=== PATIENT | female | born 1970 | race Caucasian/White ===

== ENCOUNTER 2020-10-16 16:06 | Emergency (ER) | payer MEDICARE ==
[~2020-10-16 16:06] MED LIST: ABILIFY5 MG PO; ALPRAZOLAM ER0.5 MG PO; BIRTH CONTROL PO; CELEBREX100 MG PO; ELAVIL 50 MG TA50 MG PO; FOLIC ACID1 MG PO; KLONOPIN1 MG PO; LEVAQUIN750 MG PO; LEXAPRO20 MG PO; NEURONTIN 400400 MG PO; NORCO 5-325 TA1 EACH PO; OXYCODONE HCL5 M1 PO; TOPAMAX25 M1 PO; VISTARIL50 MG PO; VOLTAREN EC 5050 MG PO; WELLBUTRIN SR150 M1 PO; XANAX1 MG PO
[2020-10-16 17:38] LABS: HEMOGLOBIN 14.9 gm/dl (12.3-15.3); RED BLOOD COUNT 5.32 M/UL (4.00-5.10); WHITE BLOOD COUNT 5.9 K/UL (4.5-11.0)
[2020-10-16] MEDS ORDERED: ZOFRAN ODT 4 MG4 MG SL (18:45)
[2020-10-16] MEDS ORDERED: LOMOTIL 2.5-0.1 EACH PO (18:45)
== END 2020-10-16 21:05 | disposition home or self-care (01) ==
LOC: ER1 16:06
PROVIDERS: Physician Assistant Medical
DX: Z23 Encounter for immunization (principal); U07.1 COVID-19; Z90.49 Acquired absence of other specified parts of digestive tract; Z88.1 Allergy status to other antibiotic agents; Z88.8 Allergy status to other drugs, medicaments and biological substances
CPT/HCPCS: 71045; 80053; 83605; 85025; 87040; 99283; J2405; J7030; M0243

== ENCOUNTER 2020-11-04 17:38 | Emergency (ER) | payer MEDICARE ==
[~2020-11-04 17:38] MED LIST changes: +LOMOTIL 2.5-0.1 EACH PO; +ZOFRAN ODT 4 MG4 MG SL
[2020-11-04 20:54] LABS: HEMOGLOBIN 13.1 gm/dl (12.3-15.3); RED BLOOD COUNT 4.45 M/UL (4.00-5.10)
[2020-11-04 21:35] LABS: BUN/CREATININE RATIO 16 (0-10)
[2020-11-04] MEDS ORDERED: TESSALON PERLE100 MG PO (22:53)
[2020-11-04] MEDS ORDERED: DECADRON6 MG PO (22:53)
[2020-11-04] MEDS ORDERED: PROVENTIL HFA6.7 GM INH (22:53)
== END 2020-11-04 23:00 | disposition home or self-care (01) ==
LOC: ER1 17:38
PROVIDERS: Physician Assistant
DX: U07.1 COVID-19 (principal); Z88.8 Allergy status to other drugs, medicaments and biological substances
CPT/HCPCS: 71045; 80053; 82550; 82553; 83874; 84484; 85025; 85379; 85610; 85730; 93005; 94640; 94664; 96374; 99285; J2930

== ENCOUNTER 2020-11-20 12:13 | Emergency (ER) | payer MEDICARE ==
[~2020-11-20 12:13] MED LIST changes: +DECADRON6 MG PO; +PROVENTIL HFA6.7 GM INH; +TESSALON PERLE100 MG PO
[2020-11-20 12:56] LABS: HEMOGLOBIN 13.8 gm/dl (12.3-15.3); RED BLOOD COUNT 4.7 M/UL (4.00-5.10); WHITE BLOOD COUNT 7.4 K/UL (4.5-11.0)
[2020-11-20 13:21] LABS: BUN/CREATININE RATIO 20 (0-10)
[2020-11-20] MEDS ORDERED: NAPROXEN500 MG PO (15:35)
[2020-11-20] MEDS ORDERED: PREDNISONE20 MG PO (15:35)
== END 2020-11-20 15:45 | disposition home or self-care (01) ==
LOC: ER1 12:13
DX: R09.1 Pleurisy (principal); R51.9 Headache, unspecified; U09.9 Post COVID-19 condition, unspecified; Z88.8 Allergy status to other drugs, medicaments and biological substances
CPT/HCPCS: 71045; 80053; 82550; 82553; 83874; 84484; 85025; 93005; 96374; 96375; 99285; J0780; J1885; Q9967

== ENCOUNTER 2020-12-09 13:06 | Emergency (ER) | payer SELFPAY ==
[~2020-12-09 13:06] MED LIST changes: +NAPROXEN500 MG PO; +PREDNISONE20 MG PO
[2020-12-09 14:03] LABS: HEMOGLOBIN 15.2 gm/dl (12.3-15.3); RED BLOOD COUNT 5.13 M/UL (4.00-5.10); WHITE BLOOD COUNT 10.5 K/UL (4.5-11.0)
[2020-12-09 14:22] LABS: BUN/CREATININE RATIO 21 (0-10)
== END 2020-12-09 15:45 | disposition home or self-care (01) ==
LOC: ER1 13:06
PROVIDERS: Preventive Medicine Occupational Medicine
DX: S20.211A Contusion of right front wall of thorax, initial encounter (principal); W19.XXXA Unspecified fall, initial encounter
CPT/HCPCS: 71045; 71250; 80053; 82550; 82553; 83874; 84484; 85025; 93005; 96374; 96375; 99285; C9113; J1885

== ENCOUNTER 2021-02-24 23:53 | Emergency (ER) | payer SELFPAY ==
[2021-02-25 01:27] LABS: HEMOGLOBIN 13.5 gm/dl (12.3-15.3); RED BLOOD COUNT 4.7 M/UL (4.00-5.10); WHITE BLOOD COUNT 7.1 K/UL (4.5-11.0)
[2021-02-25 01:52] LABS: BUN/CREATININE RATIO 16 (0-10)
[2021-02-25] MEDS ORDERED: LODINE CAP 300300 MG PO (03:43)
== END 2021-02-25 04:00 | disposition home or self-care (01) ==
LOC: ER1 23:53
DX: R10.11 Right upper quadrant pain (principal); R10.821 Right upper quadrant rebound abdominal tenderness; M79.601 Pain in right arm; M79.89 Other specified soft tissue disorders; R10.9 Unspecified abdominal pain; Z88.0 Allergy status to penicillin
CPT/HCPCS: 73030; 80053; 81001; 82550; 82553; 83690; 83874; 84484; 84703; 85025; 85379; 85610; 85730; 99284; Q9967

== ENCOUNTER 2021-03-19 18:36 | Emergency (ER) | payer MEDICARE ==
[~2021-03-19 18:36] MED LIST changes: +LODINE CAP 300300 MG PO
[2021-03-19 21:41] LABS: RED BLOOD COUNT 5.27 M/UL (4.00-5.10); WHITE BLOOD COUNT 9.4 K/UL (4.5-11.0)
[2021-03-19 22:00] LABS: BUN/CREATININE RATIO 13 (0-10)
[2021-03-19] MEDS ORDERED: CYCLOBENZAPRINE10 MG PO (22:36)
[2021-03-19] MEDS ORDERED: PREDNISONE 10 M10 MG PO (22:36)
== END 2021-03-19 23:02 | disposition home or self-care (01) ==
LOC: ER1 18:36
PROVIDERS: Physician Assistant
DX: M77.9 Enthesopathy, unspecified (principal); M19.031 Primary osteoarthritis, right wrist; Z88.8 Allergy status to other drugs, medicaments and biological substances; Z88.6 Allergy status to analgesic agent
CPT/HCPCS: 73090; 73110; 80048; 85025; 86140; 99284; J1100; J2360

== ENCOUNTER 2021-09-07 14:24 | Emergency (ER) | payer MEDICARE ==
[~2021-09-07 14:24] MED LIST changes: +CYCLOBENZAPRINE10 MG PO; +PREDNISONE 10 M10 MG PO
== END 2021-09-07 16:30 | disposition left against medical advice (07) ==
LOC: ER1 14:24
DX: Z53.21 Procedure and treatment not carried out due to patient leaving prior to being seen by health care provider (principal)